=== PATIENT | female | born 1995 | race Two or more races ===

== ENCOUNTER 2017-11-10 13:21 | Inpatient (IN) | payer MEDICAID ==
[2017-11-10] MEDS ORDERED: OXYTOCIN 30 UNITS/LR 500 ML IV ×4 (16:00→23:30)
[2017-11-10] MEDS ORDERED: METHYLERGONOVINE 0.2 MG INJ IM ×2 (16:00→23:30)
[2017-11-10] MEDS ORDERED: LIDOCAINE 1% (MPF) 30 ML INJ INJ (16:00)
[2017-11-10] MEDS ORDERED: CARBOPROST 250 MCG INJ IM ×2 (16:00→23:30)
[2017-11-10] MEDS ORDERED: OXYCODONE/ASPIRIN (4.88/325) TAB PO (16:00)
[2017-11-10] MEDS ORDERED: IBUPROFEN 600 MG TAB PO (16:00)
[2017-11-10] MEDS: LACTATED RINGER'S 1,000 ML IV* (18:59)
[2017-11-10] MEDS: AMPICILLIN 2 GM/NS (PMX) 100 ML IV (19:10)
[2017-11-10] MEDS: BUTORPHANOL 2 MG INJ IV (19:18)
[2017-11-10 19:48] LABS: ADD MAN DIFF? NO
[2017-11-10 19:51] LABS: BASOPHILS % 0.3 % (0.0-2.0); EOSINOPHILS % 0.2 % (0.0-7.0); HEMATOCRIT 31.9 % (37.0-47.0); HEMOGLOBIN 9.5 g/dl (12.0-16.0); LYMPHOCYTES # 1.3 10^3/ul (0.8-2.9); LYMPHOCYTES % 11.8 % (18.0-55.0); MEAN CORPUSCULAR HEMOGLOBIN 21.3 pg (29.0-33.0); MEAN CORPUSCULAR HGB CONC 29.8 g/dl (32.0-37.0); MEAN CORPUSCULAR VOLUME 71.5 fl (72.0-104.0); MEAN PLATELET VOLUME 10.8 fl (7.4-10.4); MONOCYTE # 0.5 10^3/ul (0.3-0.9); MONOCYTES % 4.8 % (0.0-13.0); NEUTROPHIL # 8.5 10^3/ul (1.6-7.5); NEUTROPHILS % 80.4 % (30.0-74.0); NUCLEATED RED BLOOD CELLS% 0.2 /100WBC (0.0-0.0); PLATELET COUNT 390 10^3/UL (140-415); RED BLOOD COUNT 4.46 10^6/ul (4.20-5.40)
[2017-11-10 19:51] LABS: WHITE BLOOD COUNT 10.6 10^3/ul (4.8-10.8)
[2017-11-10] MEDS ORDERED: AMPICILLIN 1 GM/NS (PMX) 50 ML IV (20:00)
[2017-11-10 20:07] LABS: INR 0.86; PROTIME 11.8 Sec (11.9-14.9); PT RATIO 0.9
[2017-11-10 20:34] LABS: ALANINE AMINOTRANSFERASE 18 IU/L (13-69); ALBUMIN 3.5 g/dl (3.3-4.9); ALBUMIN/GLOBULIN RATIO 1.09; ALKALINE PHOSPHATASE 194 IU/L (42-121); ANION GAP 14 (8-16); ASPARTATE AMINO TRANSFERASE 25 IU/L (15-46); BILIRUBIN,INDIRECT 0.2 mg/dl (0-1.1); BILIRUBIN,TOTAL 0.2 mg/dl (0.2-1.3); BLOOD UREA NITROGEN 8 mg/dl (7-20); CALCIUM 9.8 mg/dl (8.4-10.2); CARBON DIOXIDE 23 mmol/L (21-31); CHLORIDE 102 mmol/L (97-110); CREATININE 0.42 mg/dl (0.44-1.00); GLUCOSE 94 mg/dl (70-220); SODIUM 135 mmol/L (135-144); TOTAL PROTEIN 6.7 g/dl (6.1-8.1); URIC ACID 5.4 mg/dl (3.1-7.9)
[2017-11-10 20:43] LABS: HEPATITIS B SURFACE ANTIGEN NEGATIVE (NEGATIVE)
[2017-11-10] MEDS: MISOPROSTOL 200 MCG TAB PR (21:29)
[2017-11-10] MEDS: OXYTOCIN 30 UNITS/LR 500 ML IV (21:34)
[2017-11-10] MEDS ORDERED: DEXTROSE 5%-LR 1,000 ML IV (23:16)
[2017-11-10] MEDS ORDERED: MAGNESIUM HYDROXIDE 30ML CUP PO (23:30)
[2017-11-10] MEDS ORDERED: LANOLIN 7 GM TUBE TOP (23:30)
[2017-11-10] MEDS ORDERED: DIPHENHYDRAMINE 50 MG INJ IV (23:30)
[2017-11-10] MEDS ORDERED: MISOPROSTOL 200 MCG TAB PR (23:30)
[2017-11-10] MEDS ORDERED: ACETAMINOPHEN 325 MG TAB PO (23:30)
[2017-11-10] MEDS ORDERED: SENNA/DOCUSATE NA (8.6MG/50MG) TAB PO (23:30)
[2017-11-10] MEDS ORDERED: ONDANSETRON 4 MG INJ IV (23:30)
[2017-11-10] MEDS ORDERED: DIBUCAINE 1% 30 GM OINT PR (23:30)
[2017-11-10] MEDS: IBUPROFEN 600 MG TAB PO (23:35)
[2017-11-11] MEDS: HYDROCODONE/APAP (5/325) TAB PO (00:30)
[2017-11-11] MEDS: OXYTOCIN 30 UNITS/LR 500 ML IV (01:28)
[2017-11-11] MEDS: LACTATED RINGER'S 1,000 ML IV* ×4 (02:20→23:16)
[2017-11-11 02:29] LABS: AMPHETAMINE/METHAMPHETAMINE Negative (NEGATIVE); BARBITURATES Negative (NEGATIVE); BENZODIAZEPINES Negative (NEGATIVE); CANNABINOIDS Negative (NEGATIVE); COCAINE Negative (NEGATIVE); OPIATES Negative (NEGATIVE)
[2017-11-11 02:59] LABS: ADD UMIC YES; UR ASCORBIC ACID 20 mg/dL (NEGATIVE); UR BILIRUBIN (Dip) NEGATIVE (NEGATIVE); UR BLOOD (Dip) NEGATIVE (NEGATIVE); UR CLARITY CLEAR (CLEAR); UR COLOR YELLOW (YELLOW); UR GLUCOSE (Dip) NEGATIVE (NEGATIVE); UR KETONES (Dip) 1+ mg/dL (NEGATIVE); UR LEUKOCYTE ESTERASE (Dip) NEGATIVE Leu/ul (NEGATIVE); UR NITRITE (Dip) NEGATIVE (NEGATIVE); UR RBC 0 /HPF (0-5); UR SPECIFIC GRAVITY (Dip) 1.017 (1.003-1.030); UR TOTAL PROTEIN (Dip) 1+ mg/dl (NEGATIVE); UR UROBILINOGEN (Dip) NEGATIVE (NEGATIVE); UR WBC 0 /HPF (0-5)
[2017-11-11] MEDS: BENZOCAINE 20% 56 ML SPRAY TOP (04:44)
[2017-11-11] MEDS: WITCH HAZEL/GLYCERIN PAD PR (04:45)
[2017-11-11] MEDS: IBUPROFEN 600 MG TAB PO ×3 (05:58→17:23)
[2017-11-11 10:55] LABS: ADD MAN DIFF? NO
[2017-11-11 10:57] LABS: BASOPHILS % 0.2 % (0.0-2.0); EOSINOPHILS % 0.2 % (0.0-7.0); HEMATOCRIT 26.4 % (37.0-47.0); LYMPHOCYTES # 1.9 10^3/ul (0.8-2.9); LYMPHOCYTES % 14.7 % (18.0-55.0); MEAN CORPUSCULAR HEMOGLOBIN 21.9 pg (29.0-33.0); MEAN CORPUSCULAR HGB CONC 30.3 g/dl (32.0-37.0); MEAN CORPUSCULAR VOLUME 72.1 fl (72.0-104.0); MEAN PLATELET VOLUME 10.8 fl (7.4-10.4); MONOCYTE # 0.8 10^3/ul (0.3-0.9); MONOCYTES % 5.9 % (0.0-13.0); NEUTROPHIL # 10.1 10^3/ul (1.6-7.5); NEUTROPHILS % 78.1 % (30.0-74.0); PLATELET COUNT 324 10^3/UL (140-415); RED BLOOD COUNT 3.66 10^6/ul (4.20-5.40); RED CELL DISTRIBUTION WIDTH 18.7 % (11.5-14.5)
[2017-11-11 10:57] LABS: WHITE BLOOD COUNT 12.9 10^3/ul (4.8-10.8)
[2017-11-11 15:15] LABS: RAPID PLASMA REAGIN NONREACTIVE (NR)
[2017-11-12] MEDS: IBUPROFEN 600 MG TAB PO ×3 (06:25→12:00)
[2017-11-12] MEDS ORDERED: MEASLES,MUMPS,RUBELLA VACCINE INJ SC* (09:00)
[2017-11-12] MEDS: DIPHTH/TET/ACEL PERTUSS (ADULT) 0.5 ML VIAL IM* (09:00)
== END 2017-11-12 14:37 | disposition home or self-care (01) | DRG 775 ==
LOC: OBT 13:21 → PP1 11-11 01:46 → L-D 13:21 → OBT 15:40 → L-D 15:40
PROVIDERS: Obstetrics & Gynecology
PROC: 10E0XZZ Delivery of Products of Conception, External Approach (ICD-10-PCS; principal; 2017-11-10)
PROC: 0DQR0ZZ Repair Anal Sphincter, Open Approach (ICD-10-PCS; 2017-11-10)
PROC: 4A1HXCZ Monitoring of Products of Conception, Cardiac Rate, External Approach (ICD-10-PCS; 2017-11-10)
DX: O69.81X0 Labor and delivery complicated by cord around neck, without compression, not applicable or unspecified (principal); O70.20 Third degree perineal laceration during delivery, unspecified; Z3A.38 38 weeks gestation of pregnancy; Z37.0 Single live birth
CPT/HCPCS: 80053; 80307; 81001; 84560; 85025; 85610; 85730; 86592; 86850; 86900; 86901; 87340; 90715